=== PATIENT | female | born 1950 | race Caucasian/White ===

== ENCOUNTER 2021-02-02 05:42 | Day surgery (SDC) | payer MEDICARE, OTHER ==
[2021-01-30 09:48] LABS: ALANINE AMINOTRANSFERASE 20 U/L (12-78); ALBUMIN 3.4 g/dL (3.4-5.0); ANION GAP 7 mmol/L (5-15); CHLORIDE 107 mmol/L (98-107); CREATININE 0.76 mg/dL (0.55-1.02)
[2021-01-30 09:51] LABS: ALKALINE PHOSPHATASE 48 U/L (45-117); BILIRUBIN,TOTAL 0.9 mg/dL (0.2-1.0); TOTAL PROTEIN 7.7 g/dL (6.4-8.2)
[~2021-02-02] VITALS: Ht 165.1 cm; Wt 62.0 kg
[~2021-02-02 05:42] MED LIST: BISM262T9 PO; LOSA25TA25 PO; MAGN400C PO; OMEP20TA62 PO; POTA10TA31 PO; SIME80TA16 PO; SOD250TA2 PO; THIA100T52 PO
[2021-02-02 06:14] VITALS: BP 98/66
[2021-02-02] MEDS ORDERED: CHLORHEXIDINE 15 ML UDC PO ONE (06:30)
[2021-02-02] MEDS ORDERED: CEFOTETAN PMX 2GM/50ML 50 ML IVPB ONE (06:30)
[2021-02-02] MEDS ORDERED: LACTATED RINGERS 1,000 ML IV SCH (06:30)
[2021-02-02] MEDS ORDERED: FENTANYL PF 250 MCG/5ML ONE (06:35)
[2021-02-02] MEDS ORDERED: ONDANSETRON 2MG/ML, 2ML ONE (06:44)
[2021-02-02] MEDS ORDERED: DEXAMETHASONE 4 MG/ML, 1ML ONE (06:44)
[2021-02-02] MEDS ORDERED: CEFAZOLIN 1,000 MG ONE (06:44)
[2021-02-02] MEDS ORDERED: PROPOFOL 10 MG/ML, 20ML ONE (06:44)
[2021-02-02] MEDS ORDERED: PROMETHAZINE 25 MG/ML, 1ML IVPush PRN (07:00)
[2021-02-02] MEDS ORDERED: hydrALAzine 20 MG/ML, 1ML IV PRN (07:00)
[2021-02-02] MEDS ORDERED: FENTANYL PF 100 MCG/2ML IV PRN (07:00)
[2021-02-02] MEDS ORDERED: LABETALOL 5MG/ML, 20ML IV PRN (07:00)
[2021-02-02] MEDS ORDERED: HALOPERIDOL 5 MG/ML IV PRN (07:00)
[2021-02-02] MEDS ORDERED: OXYcodone 5 MG/5 ML ORAL.SOL UDC PO PRN (07:00)
[2021-02-02] MEDS ORDERED: HYDROmorphone 1 MG/ML, 1ML INJ IVPush PRN (07:00)
[2021-02-02] MEDS ORDERED: MEPERIDINE/PF 25MG/0.5ML IVPush PRN (07:00)
[2021-02-02] MEDS ORDERED: morphine SULFATE 10 MG/ML, 1ML IVPush PRN (07:00)
[2021-02-02] MEDS ORDERED: ACETAMINOPHEN 325 MG TABLET PO PRN (07:00)
[2021-02-02] MEDS ORDERED: VISIPAQUE 270 MG/ML, 50ML BOTTLE ONE (07:15)
[2021-02-02] MEDS ORDERED: EPINEPHRINE 1 MG/ML, 1ML ONE (07:15)
[2021-02-02] MEDS ORDERED: HEPARIN 1,000 UNITS/ML, 10ML ONE (07:15)
[2021-02-02] MEDS ORDERED: BUPIVACAINE/PF 0.25% ONE (07:15)
[2021-02-02] MEDS ORDERED: MEPERIDINE/PF 25MG/ML,1ML ONE (08:56)
[2021-02-02] MEDS ORDERED: OXYTOCIN 10 UNITS/ML, 1ML ONE (17:02)
== END 2021-02-02 10:15 | disposition home or self-care (01) ==
LOC: OUT 05:42
PROVIDERS: ATTEND Obstetrics & Gynecology
DX: C56.9 Malignant neoplasm of unspecified ovary (principal); C78.6 Secondary malignant neoplasm of retroperitoneum and peritoneum; J98.11 Atelectasis; I10 Essential (primary) hypertension; K21.9 Gastro-esophageal reflux disease without esophagitis; F32.9 Major depressive disorder, single episode, unspecified; F41.9 Anxiety disorder, unspecified; Z20.822 Contact with and (suspected) exposure to COVID-19; Z79.899 Other long term (current) drug therapy; Z85.828 Personal history of other malignant neoplasm of skin; Z87.891 Personal history of nicotine dependence; Z80.51 Family history of malignant neoplasm of kidney
CPT/HCPCS: 36415; 36561; 71045; 71046; 77001; 80053; 93005; C1788; J0171; J0690; J1100; J1644; J2175; J2405; J2590; J2704; J3010; J7120; Q9966; U0003; U0005